=== PATIENT | female | born 1940 | race Caucasian/White ===

== ENCOUNTER 2019-10-08 23:05 | Inpatient (IN) | payer BC, OTHER ==
[~2019-10-08] VITALS: Ht 172.7 cm; Wt 64.4 kg
--- NOTE | 2019-10-08 23:14 | NUR ---
"BIBRA. C/O "PER DAUGHTER: ALTERED X2-3 HRS" RESPONSIVE TO PAIN/VERBAL STIMULI. ABLE TO VERBALIZE NEEDS AT THIS TIME." pt aaox4, -sob, nad noted, vss, pending md martinez
[2019-10-08 23:25] LABS: BASOPHILS # (AUTO) 0.1 /CMM (0.0-0.2); BASOPHILS % (AUTO) 0.8 % (0.0-2.0); EOSINOPHILS % (AUTO) 2.7 % (0.0-6.0); HEMATOCRIT 38 % (33-45); HEMOGLOBIN 12.3 g/dL (11.5-14.8); LYMPHOCYTES # (AUTO) 2.5 /CMM (0.8-4.8); LYMPHOCYTES % (AUTO) 32.7 % (20.0-44.0); MEAN CORPUSCULAR HGB CONC 33 g/dl (31.0-36.0); MEAN CORPUSCULAR VOLUME 86 fL (82-100); MONOCYTES # (AUTO) 0.8 /CMM (0.1-1.30); MONOCYTES % (AUTO) 10.7 % (2.0-12.0); NEUTROPHILS # (AUTO) 4.1 /CMM (1.8-8.9); NEUTROPHILS % (AUTO) 53.1 % (43.0-81.0); PLATELET COUNT (AUTO) 333 /CMM (150-450); RED BLOOD CELL COUNT(AUTO) 4.42 MIL/uL (4.0-5.2); WHITE BLOOD COUNT (AUTO) 7.8 K/uL (4.3-11.0)
[2019-10-08] MEDS ORDERED: IV NS 0.9% 500 ML BAG IV ONE (23:30)
[2019-10-08 23:36] LABS: CALCIUM, SERUM 9.2 mg/dL (8.5-10.1); CARBON DIOXIDE 27 mmol/L (21-32); CHLORIDE 102 mmol/L (98-107); CREATININE 0.7 mg/dL (0.6-1.3); GLUCOSE 192 mg/dL (74-106); POTASSIUM 4.2 mmol/L (3.5-5.1); SODIUM SERUM 137 mmol/L (136-145); UREA NITROGEN, BLOOD 16 mg/dL (7-18)
[2019-10-08 23:51] LABS: ACETAMINOPHEN 0 ug/ml (10-30); ALANINE AMINOTRANSFERASE 16 U/L (12-78); ALBUMIN 3.3 g/dL (3.4-5.0); ALCOHOL, BLOOD < 3 mg/dL (0-0); ALKALINE PHOSPHATASE 105 U/L (46-116); ASPARTATE AMINOTRANSFERASE 15 U/L (15-37); BILIRUBIN,TOTAL 0.2 mg/dL (0.2-1.0); SALICYLATE 0.9 mg/dL (2.8-20.0)
[2019-10-08 23:58] LABS: APPEARANCE,URINE Clear (CLEAR); BILIRUBIN,URINE Negative (NEGATIVE); BLOOD, URINE Negative Ery/uL (NEGATIVE); COLOR,URINE Yellow (YELLOW); KETONES,URINE Negative (NEGATIVE); LEUKOCYTE ESTERASE ,URINE Trace (NEGATIVE); NITRITE, URINE Negative (NEGATIVE); PROTEIN,URINE Negative (NEGATIVE); UGLUCOSE 100 MG/DL mg/dL (NEGATIVE); UROBILINOGEN,URINE 0.2 EU/dL (0.2)
[2019-10-09] VITALS (13 sets, daily range): BP systolic 104–169; BP diastolic 62–89
[2019-10-09 00:36] LABS: SERUM AMMONIA 1 umol/L (11-32)
[2019-10-09 00:56] LABS: THYROID STIMULATING HORMONE 0.477 uIU/mL (0.358-3.74)
[2019-10-09] MEDS ORDERED: MAG HYDROX/AL HYDROX/SIMETH 30 ML UDC PO PRN (01:00)
[2019-10-09] MEDS ORDERED: ACETAMINOPHEN 325 MG TABLET PO PRN (01:00)
[2019-10-09] MEDS ORDERED: MAGNESIUM HYDROXIDE 30 ML UDC PO PRN (01:00)
[2019-10-09] MEDS ORDERED: Z GUARD REMEDY 2 OZ OINT TP PRN (01:00)
[2019-10-09] MEDS ORDERED: ONDANSETRON HCL/PF 4 MG/2 ML VIAL IVP PRN (01:00)
--- NOTE | 2019-10-09 01:19 | NUR ---
REPORT CALLED IN TO [facility]
--- NOTE | 2019-10-09 01:23 | NUR ---
DAUGHTER [facility]
[2019-10-09 01:29] LABS: BACTERIA,URINE None seen /HPF (None Seen); MUCUS,URINE Few /LPF (None Seen); RBC,URINE 0-2 /HPF (0-2); SQUAMOUS EPITHELIAL CELL,UR Few /HPF (None Seen)
--- NOTE | 2019-10-09 01:30 | NUR ---
NEW ADMISSION NOTE. PATIENT ADMITTED FROM ER TO RM 310-1 PATIENT ACCOMPANIED BY DAUGHTER SONAL MITCHELL WHOM SHE STATES IS DPOA PHONE [phone]. OFFICIAL PAPERS ARE IN [place] WHERE PATIENT LIVES USUALLY. AT THE MOMENT SHE IS STAYING WITH HER DAUGHTER. PT AXOX3 PATIENT DENIES PAIN. PT BREATHING REGULAR AND UNEVEN. ADMITTED FOR AMS AND UTI. PT ORIENTED TO ROOM. PT GOT OOB AND AMBULATED TO BR WITH ASSIST X1. PT DID REPORT FEELING DIZZY ON WAY TO BR BUT STATED "iLL BE OK" PT SETTLED IN BED TELE APPLIED PT SB WITH 1DEGREE AV BLCOK. BED DOWN LOCKED. SRX2 BED ALARM ACTIVE CALL LIGHT WITHIN REACH. ADMISSION ASSESSMENT DONE WITH PATIENT A DAUGHTER AT THE BEDSIDE.
[2019-10-09] MEDS ORDERED: CEFTRIAXONE 1 G VIAL ONE ×2 (02:29→02:42)
[2019-10-09] MEDS: IV NS 0.9% 1,000 ML IV PRN (02:41)
[2019-10-09] MEDS: CEFTRIAXONE 2 G in IV NS 0.9% 100 ML IV SCH (02:42)
--- NOTE | 2019-10-09 02:56 | NUR ---
new admission pharmacy closed. rocephin preprepared 2gms unavailable for ivpb. two bags of pre prepared 1gms to be given to make a total dose of 2gms of rocephin ivpb.
[2019-10-09] MEDS: ENOXAPARIN SODIUM 40 MG/0.4 ML DISP.SYRIN SQ SCH (02:59)
[2019-10-09] MEDS ORDERED: LEVO75TA7 PO (03:05)
[2019-10-09] MEDS ORDERED: PANTOPRAZOLE 40 MG TABLET.DR PO SCH (07:30)
--- NOTE | 2019-10-09 07:32 | NUR ---
SHEET METAL WORKER HELPER OPENING NOTES RECEIVED PT AWAKE IN BED IN NO ACUTE SIGNS OF DISTRESS. DAUGHTER AT BEDSIDE. A/O X2-3. VERBALLY RESPONSIVE, DENIES PAIN OR ANY DISCOMFORTS AT THIS TIME. ON ROOM AIR, BREATHING EVEN AND UNLABORED. ON TELE-MONITORING WITH CURRENT READING OF SR WITH HR ON 80'S, NO C/O CARDIAC DISTRESS VOICED. IV ACCESS ON LFA G#18 INTACT AND PATENT WITH IVF OF NS INFUSING @ 75ML/HR, NO S/S OF INFILTRATIONS NOTED. SAFETY MEASURES IN PLACE: BED IN LOW LOCKED POSITION WITH SR UP X2. CALL LIGHT WITHIN EASY REACH OF PT. WILL CONTINUE TO MONITOR PT ACCORDINGLY.
--- NOTE | 2019-10-09 18:53 | NUR ---
MS RN CLOSING NOTES PATIENT AWAKE AND RESTING IN BED AT MODERATE HIGH BACKREST POSITION AT THIS TIME. A/O X3. ABLE TO MAKE NEEDS KNOWN. ON ROOM AIR,TOLERATING WELL WITH NO SOB NOTED THROUGHOUT THE DAY. IV ACCESS ON LFA G#18 INTACT AND PATENT WITH IVF OF NS INFUSING @ 75ML/HR, NO S/S OF INFILTRATIONS NOTED. ALL NEEDS AND CARE ATTENDED WELL. SAFETY MEASURES KEPT IN PLACE: BED IN LOW LOCKED POSITION WITH SR UP X2. CALL LIGHT WITHIN EASY REACH OF PT. UN-ABLE TO COLLECT SPUTUM SPECIMEN, PT UN-ABLE TO PRODUCE AT DURING THE DAY. WILL ENDORSE TO HEAD OF DIGITAL ADVERTISING & INTEGRATION NURSE TO COLLECT AND TO CONTINUE PLAN OF CARE.
--- NOTE | 2019-10-09 19:05 | NUR ---
RN MS OPENING NOTES RECEIVED PATIENT IN BED AWAKE ALERT AND ORIENTED X4, RESPIRATIONS EVEN AND UNLABORED WITH EQUAL RISE AND FALL OF CHEST, DENIES ANY PAIN OR DISCOMFORT AT THIS TIME, IV SITE TO LEFT FA #18 G INTACT AND PATENT, NO REDNESS, NO INFILTRATION PRESENT, IVF RUNNING ORDERED, ORIENTED TO STAFF AND CALL LIGHT AND KEPT WITHIN REACH, SAFETY PRECAUTIONS IN PLACE, LOW BED AND LOCKED, BED ALARM IN PLACE FOR FALL PRECAUTIONS,REMAINS COMFORTABLE AT THIS TIME, WILL CONTINUE TO MONITOR AND ATTEND TO NEEDS.
--- NOTE | 2019-10-09 20:33 | NUR ---
rn ms notes made hospitalist bryan aware regarding of med recon levothyroxine sodium 75mcg with new order noted, read back and carried out. patient requesting for medication to be continued as well.
[2019-10-10] MEDS: CEFTRIAXONE 2 G in IV NS 0.9% 100 ML IV SCH (00:27)
[2019-10-10] MEDS: IV NS 0.9% 1,000 ML IV PRN (01:00)
[2019-10-10] MEDS: ENOXAPARIN SODIUM 40 MG/0.4 ML DISP.SYRIN SQ SCH (01:01)
[2019-10-10 06:11] LABS: BASOPHILS # (AUTO) 0.2 /CMM (0.0-0.2); BASOPHILS % (AUTO) 3.2 % (0.0-2.0); EOSINOPHILS % (AUTO) 4.3 % (0.0-6.0); HEMATOCRIT 37 % (33-45); LYMPHOCYTES # (AUTO) 1.6 /CMM (0.8-4.8); LYMPHOCYTES % (AUTO) 27.2 % (20.0-44.0); MEAN CORPUSCULAR HGB CONC 33 g/dl (31.0-36.0); MEAN CORPUSCULAR VOLUME 86 fL (82-100); MONOCYTES # (AUTO) 0.6 /CMM (0.1-1.30); MONOCYTES % (AUTO) 11.2 % (2.0-12.0); NEUTROPHILS # (AUTO) 3.1 /CMM (1.8-8.9); NEUTROPHILS % (AUTO) 54.1 % (43.0-81.0); PLATELET COUNT (AUTO) 314 /CMM (150-450); RED BLOOD CELL COUNT(AUTO) 4.27 MIL/uL (4.0-5.2); WHITE BLOOD COUNT (AUTO) 5.8 K/uL (4.3-11.0)
[2019-10-10 06:38] LABS: CALCIUM, SERUM 8.8 mg/dL (8.5-10.1); CREATININE 0.6 mg/dL (0.6-1.3); MAGNESIUM 2.2 mg/dL (1.8-2.4); PHOSPHORUS 3.5 mg/dL (2.5-4.9); POTASSIUM 4.1 mmol/L (3.5-5.1)
--- NOTE | 2019-10-10 06:42 | NUR ---
RN MS CLOSING NOTES PATIENT IN BED AWAKE ALERT AND ORIENTED X4, RESPIRATIONS EVEN AND UNLABORED WITH EQUAL RISE AND FALL OF CHEST, DENIES ANY PAIN OR DISCOMFORT AT THIS TIME, IV SITE TO LEFT FA #18 G INTACT AND PATENT, NO REDNESS, NO INFILTRATION PRESENT, IVF RUNNING ORDERED, CALL LIGHT KEPT WITHIN REACH, SAFETY PRECAUTIONS IN PLACE, LOW BED AND LOCKED, BED ALARM IN PLACE FOR FALL PRECAUTIONS,REMAINS COMFORTABLE AT THIS TIME, TOILETING OFFERED, WILL CONTINUE TO MONITOR AND ATTEND TO NEEDS AND ENDORSE TO NEXT SHIFT, PATIENT REMAINS COMFORTABLE.
[2019-10-10 06:54] LABS: THYROID STIMULATING HORMONE 0.373 uIU/mL (0.358-3.74)
[2019-10-10] MEDS ORDERED: LEVOTHYROXINE SODIUM 75 MCG TABLET PO SCH (07:30)
--- NOTE | 2019-10-10 07:46 | NUR ---
MS RN NOTES PATIENT RECEIVED RESTING INSIDE ROOM. AWAKE, A/O X 4. NO ACUTE DISTRESS. NO CHANGES IN LOC NOTED. PATIENT CALM AND RELAXED. DENIES ANY PAIN OR DISCOMFORT. SAFETY PRECAUTIONS IN PLACE. WILL CONTINUE TO MONITOR. BED LOCKED AND IN LOW POSITION. BILATERAL UPPER SIDE RAILS UP AND LOCKED. CALL LIGHT WITHIN EASY REACH
[2019-10-10 08:00] VITALS: BP 157/78
[2019-10-10 08:12] VITALS: BP_SYST 165; BP_SYST 167; BP_SYST 168; BP_DIAS 81; BP_DIAS 87; BP_DIAS 94
--- NOTE | 2019-10-10 08:16 | NUR ---
MS RN NOTES PATIENT SEEN AND EXAMINED BY DR THURSTON. NO NEW ORDERS AT THIS TIME. WILL CONTINUE TO MONITOR
--- NOTE | 2019-10-10 10:37 | NUR ---
MS RN NOTES PATIENT FOR DISCHARGE HOME. DISCHARGE INSTRUCTIONS AND EDUCATION PROVIDED TO PATIENT AND DAUGHTER SHELDON AND BOTH VERBALIZED UNDERSTANDING. REMINDED TO ARRANGE FOLLOW-UP APPOINTMENT WITH PRIMARY CARE PHYSICIAN AND DR THURSTON (CARDIO), PROVIDED DR THURSTON'S INFORMATION. IV REMOVED, TIP INTACT, PRESSURE DRESSING PLACED ON SITE. ALL BELONGINGS COMPLETE ON DISCHARGE, NO REPORT OF MISSING BELONGINGS. PATIENT ACCOMPANIED BY LICENSED STAFF TO PARKING LOT. LEFT HOSPITAL PREMISES VIA PRIVATE CAR WITH DAUGHTER SHELDON. NO NEW SKIN BREAKDOWN ON DISCHARGE. NO ACUTE DISTRESS. NO C/O PAIN OR DISCOMFORT. MD AWARE
--- NOTE | 2019-10-11 12:51 | NUR ---
financial services sales representative requested by [facility] to contact discharged pt due to pt having abnormal lab results after being discharged. SW attempted to contact pt at her listed home phone number [[phone]] but number not in working order. ALYSON attempted to contact pts next of kin listed on face sheet, pts daughter Astrid Stout at [phone], but a disconnected ring tone comes up and SW not able to leave voicemail. ALYSON mailed letter to pts address listed on the prehospital care report summary: [address] [place] [address], with instruction to contact Ash at phone number [phone]. No other services needed at this time. SW available if needed.
== END 2019-10-10 10:30 | disposition home or self-care (01) | DRG 640 ==
LOC: ER 23:07 → TELE 10-09 01:10 → MED 10-09 09:56
PROVIDERS: ADMIT Nurse Practitioner Acute Care; ATTEND Nurse Practitioner Acute Care
DX: E86.0 Dehydration (principal); G93.41 Metabolic encephalopathy; E11.65 Type 2 diabetes mellitus with hyperglycemia; E03.9 Hypothyroidism, unspecified; Z91.81 History of falling; I10 Essential (primary) hypertension; K44.9 Diaphragmatic hernia without obstruction or gangrene
CPT/HCPCS: 36415; 70450-TC; 71045-TC; 80048-TC; 80061-TC; 80076-TC; 80305; 81000-TC; 82140-TC; 82962-TC; 83605-TC; 83735-TC; 84100-TC; 84443-TC; 84484-TC; 85025-TC; 85730-TC; 87040-TC; 87070-TC; 87081-TC; 87086-TC; 92611-TC; 97116-TC; 97530-TC; G0378; G0480; J0696; J1650; J7030; J7040

== ENCOUNTER 2019-10-16 15:10 | Emergency (ER) | payer OTHER ==
[~2019-10-16] VITALS: Ht 167.6 cm; Wt 64.4 kg
[~2019-10-16 15:10] MED LIST: LEVO75TA7 PO
--- NOTE | 2019-10-16 15:17 | NUR ---
PT BIB DAUGHTER FROM HOME SENT FOR POSITIVE BLOOD CULTURE RESULTS, PT IS AAOX4, NOT IN RESPIRATORY DISTRESS, HOOKED TO MONITOR, KEPT RESTED AND COMFORTABLE, WILL CONTINUE TO MONITOR.
--- NOTE | 2019-10-16 15:30 | NUR ---
PT SEEN AND EXAMINED BY .
--- NOTE | 2019-10-16 15:45 | NUR ---
IV LINE ESTABLISHED, BLOOD DRAWN AND SENT TO LAB.
[2019-10-16 15:50] LABS: BASOPHILS # (AUTO) 0.1 /CMM (0.0-0.2); BASOPHILS % (AUTO) 1.1 % (0.0-2.0); EOSINOPHILS % (AUTO) 3.6 % (0.0-6.0); HEMATOCRIT 37 % (33-45); HEMOGLOBIN 12.3 g/dL (11.5-14.8); LYMPHOCYTES # (AUTO) 1.8 /CMM (0.8-4.8); LYMPHOCYTES % (AUTO) 27.4 % (20.0-44.0); MEAN CORPUSCULAR HGB CONC 33 g/dl (31.0-36.0); MEAN CORPUSCULAR VOLUME 85 fL (82-100); MONOCYTES # (AUTO) 0.8 /CMM (0.1-1.30); MONOCYTES % (AUTO) 11.6 % (2.0-12.0); NEUTROPHILS # (AUTO) 3.7 /CMM (1.8-8.9); NEUTROPHILS % (AUTO) 56.3 % (43.0-81.0); PLATELET COUNT (AUTO) 367 /CMM (150-450); RED BLOOD CELL COUNT(AUTO) 4.37 MIL/uL (4.0-5.2); WHITE BLOOD COUNT (AUTO) 6.7 K/uL (4.3-11.0)
--- NOTE | 2019-10-16 15:55 | NUR ---
LINEN ATTENDANT AT BEDSIDE FOR XRAY.
[2019-10-16 16:25] LABS: ALBUMIN 3.5 g/dL (3.4-5.0); BILIRUBIN,TOTAL 0.2 mg/dL (0.2-1.0); CALCIUM, SERUM 8.9 mg/dL (8.5-10.1); CREATININE 0.8 mg/dL (0.6-1.3); POTASSIUM 4.1 mmol/L (3.5-5.1); TOTAL PROTEIN, SERUM 7.2 g/dL (6.4-8.2)
[2019-10-16 16:25] LABS: APPEARANCE,URINE Clear (CLEAR); BILIRUBIN,URINE Negative (NEGATIVE); BLOOD, URINE Negative Ery/uL (NEGATIVE); COLOR,URINE Yellow (YELLOW); KETONES,URINE Negative (NEGATIVE); LEUKOCYTE ESTERASE ,URINE Small (NEGATIVE); NITRITE, URINE Negative (NEGATIVE); PH,URINE 5.5 (5.0-8.0); PROTEIN,URINE Negative (NEGATIVE); UGLUCOSE Negative (NEGATIVE); UROBILINOGEN,URINE 0.2 EU/dL (0.2)
[2019-10-16 16:43] LABS: BACTERIA,URINE Few /HPF (None Seen); RBC,URINE 0-2 /HPF (0-2); SQUAMOUS EPITHELIAL CELL,UR Few /HPF (None Seen)
[2019-10-16 17:35] VITALS: BP 148/81
--- NOTE | 2019-10-16 17:35 | NUR ---
IV removed. Catheter intact and site benign. Pressure and 4x4 applied to site. No bleeding noted. Patient discharged to home in stable condition. Written and verbal after care instructions given. Patient verbalizes understanding of instruction.
== END 2019-10-16 17:36 | disposition home or self-care (01) ==
LOC: ER 15:12
DX: R53.1 Weakness (principal); R53.83 Other fatigue; F03.90 Unspecified dementia, unspecified severity, without behavioral disturbance, psychotic disturbance, mood disturbance, and anxiety; Z79.899 Other long term (current) drug therapy
CPT/HCPCS: 36415; 71045-TC; 80048-TC; 80076-TC; 81000-TC; 83605-TC; 85025-TC; 87040-TC; 87086-TC

== ENCOUNTER 2019-11-11 11:25 | Emergency (ER) | payer OTHER ==
[~2019-11-11] VITALS: Ht 170.2 cm; Wt 69.9 kg
--- NOTE | 2019-11-11 11:55 | NUR ---
PT PRESENTED TO THE ER WITH A C/O DIZZINESS S/P SLIPPING WHILE GETTING INTO HER CAR. PT STATED THAT SHE HIT THE SIDE OF HER HEAD AND FELT "WOOSEY". PT FEELS THAT SHE HAS MOMENTS OF FORGETFULNESS. PT'S NEURO CHECK IS NORMAL AND NO S/S OF PAIN OR DISTRESS NOTED.
--- NOTE | 2019-11-11 12:05 | NUR ---
Denis GREER NP IS AT THE BEDSIDE.
--- NOTE | 2019-11-11 12:30 | NUR ---
PT LEFT FOR CT.
--- NOTE | 2019-11-11 12:45 | NUR ---
PT RETURNED FROM CT.
--- NOTE | 2019-11-11 13:40 | NUR ---
Patient discharged to home in stable condition. Written and verbal after care instructions given. Patient verbalizes understanding of instruction. Pt's daughter is driving pt home. VSS.
[2019-11-11 13:41] VITALS: BP 137/85
== END 2019-11-11 13:42 | disposition home or self-care (01) ==
LOC: ER 11:26
DX: S09.8XXA Other specified injuries of head, initial encounter (principal); F03.90 Unspecified dementia, unspecified severity, without behavioral disturbance, psychotic disturbance, mood disturbance, and anxiety; E03.9 Hypothyroidism, unspecified; Z79.899 Other long term (current) drug therapy; W01.198A Fall on same level from slipping, tripping and stumbling with subsequent striking against other object, initial encounter; Y93.89 Activity, other specified; Y92.89 Other specified places as the place of occurrence of the external cause; Y99.8 Other external cause status
CPT/HCPCS: 70450-TC

== ENCOUNTER 2019-11-14 11:02 | Emergency (ER) | payer OTHER ==
[~2019-11-14] VITALS: Ht 170.2 cm; Wt 70.3 kg
--- NOTE | 2019-11-14 11:45 | NUR ---
PT TAKEN TO CT
--- NOTE | 2019-11-14 11:55 | NUR ---
PT BACK FROM XRAY Addendum: 11/14/19 at 1155 by MARC PT BACK FROM CT
[2019-11-14 12:15] VITALS: BP 142/75
== END 2019-11-14 12:21 | disposition home or self-care (01) ==
LOC: ER 11:02
DX: S06.0X0A Concussion without loss of consciousness, initial encounter (principal); H11.31 Conjunctival hemorrhage, right eye; F03.90 Unspecified dementia, unspecified severity, without behavioral disturbance, psychotic disturbance, mood disturbance, and anxiety; Z79.899 Other long term (current) drug therapy; W22.8XXA Striking against or struck by other objects, initial encounter; Y93.89 Activity, other specified; Y92.89 Other specified places as the place of occurrence of the external cause; Y99.8 Other external cause status
CPT/HCPCS: 70450-TC